=== PATIENT | male | born 1970 | race Caucasian/White ===

== ENCOUNTER 2016-12-01 16:56 | Emergency (ER) | payer BC ==
[2016-12-01] MEDS ORDERED: 0.9 % SODIUM CHLORIDE 1,000 ML IV ONE (17:06)
[2016-12-01] MEDS ORDERED: ONDANSETRON HCL/PF 4 MG/ 2ML VIAL ONE (17:26)
[2016-12-01] MEDS: 0.9 % SODIUM CHLORIDE 1,000 ML IV SCH (17:29)
[2016-12-01 17:35] LABS: MEAN CORPUSCULAR HEMOGLOBIN 28.6 pg (28.0-34.0); MEAN CORPUSCULAR VOLUME 86.1 fl (80.0-100.0)
[2016-12-01 17:42] LABS: eGFR (African) > 60; eGFR (Non-African) > 60
--- NOTE | 2016-12-01 17:53 | ED Physician Documentation ---
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 Has not been urinating much today. Patient became naseated and started having some abd cramping. Patient states that he passed out and fell out of his tractor. Tractor has a cab so he beleives he was in the process of getting out of the cab when he blacked out. He awoke on the ground and complains of some pain in the lower back and knees that he did not have previously. No history of syncope. No seizures. No cardiac problems) - ROS CONST: no problems. denies: fever, chills EYES/ENT: none CVS/RESP: none GI/: abdominal pain, problems urinating (some stinging and burning.), nausea. denies: diarrhea, black stools MS/SKIN/LYMPH: joint pain (knees bilat), back pain (lower lumbar). denies: neck pain NEURO/PSYCH: difficulty walking (due to pain). denies: headache, fainting, numbness - PAST HX Past History: other (allergic rhinnitis) Other History: none Surgeries/Procedures: other (sinus surgery) Allergies/Adverse Reactions: Allergies Allergy/AdvReac Type Severity Reaction Status Date / Time No Known Allergies Allergy Verified 12/01/16 17:33 - SOCIAL HX Smoking History: non-smoker Alcohol Use: none Drug Use: none - FAMILY HX Family History: No - VITAL SIGNS Vital Signs: Vital Signs Temp Pulse Resp BP Pulse Ox 117/67 12/22/13 23:35 - REVIEWED ASSESSMENTS Nursing Assessment Reviewed: Yes Vitals Reviewed: Yes ED Results Lab/Radiology - Lab Results Lab Results: Lab Results 12/01/16 12/01/16 17:20 17:20 WBC 18.60 K/ul H K/ul (4.00-12.00) RBC 5.20 M/ul M/ul (3.90-5.20) Hgb 14.8 g/dL g/dL (12.0-18.0) Hct 44.8 % % (37.0-53.0) MCV 86.1 fl fl (80.0-100.0) MCH 28.6 pg pg (28.0-34.0) MCHC 33.2 g/dL g/dL (30.0-36.0) RDW 13.7 % % (11.3-14.3) Plt Count 217 K/mm3 K/mm3 (130-400) Sodium 141 mmol/L mmol/L (136-145) Potassium 3.8 mmol/L mmol/L (3.5-5.0) Chloride 106 mmol/L mmol/L (98-110) Carbon Dioxide 26 mmol/L mmol/L (20-32) BUN 14 mg/dL mg/dL (10-26) Creatinine 1.0 mg/dL mg/dL (0.4-1.5) Estimated Creat Clear 115 Est GFR ( Amer) > 60 (60 - ) Est GFR (Non-Af Amer) > 60 (60 - ) Glucose 85 mg/dL mg/dL (70-99) Calcium 9.7 mg/dL mg/dL (8.5-10.5) Total Bilirubin 1.4 mg/dL H mg/dL (0.2-1.2) AST 26 U/L U/L (0-41) ALT 38 U/L U/L (0-45) Alkaline Phosphatase 84 U/L U/L (46-116) Total Protein 7.4 g/dL g/dL (6.0-8.5) Albumin 4.8 g/dL g/dL (3.0-5.5) - Radiology Radiology Impressions: Report Submission Date: Dec 01, 2016 7:03:37 PM CDT Patient Study Name: ORTIZ CORTEZ+ Date: Dec 01, 2016 6:15:45 PM CDT Modality Type: CR Gender: M Description: LOWER EXTREMITY : 68 Institution: [facility] Physician: ISIDORO LEAHY Bilateral knees, AP, lateral and sunrise views History: Knee pain, fall Findings: The osseous, joints and soft tissue structures are normal. Impression: Normal. Lumbar spine, AP and lateral, 3 images History: Low back pain, fall Findings: No fracture, subluxation or abnormal bone production or destruction is identified. The vertebral bodies and intervertebral disc spaces are of normal height. Impression: Normal. Electronically signed on Dec 01, 2016 7:02:30 PM CDT by: Zak Tobin - Orders Orders: ED Orders Category Date Time Status Place IV Lock 1T Care 12/01/16 17:08 Active CBC/PLATELET/DIFF Routine Lab 12/01/16 17:20 Completed CMP Routine Lab 12/01/16 17:20 Completed URINALYSIS Routine Lab 12/01/16 Uncollected 0.9 % Sodium Chloride [Normal Saline] 1,000 ml Med 12/01/16 17:30 Ordered IV .Q1H 0.9 % Sodium Chloride [Normal Saline] 1,000 ml Med 12/01/16 17:06 Discontinued IV .STK-MED Ondansetron HCl/Pf [Zofran 4 mg/2 ml] Med 12/01/16 17:26 Discontinued 4 mg .ROUTE .STK-MED ONE General Adult Physical Exam - PHYSICAL EXAM GENERAL APPEARANCE: mild distress EENT: eye inspection normal, dry mucous membranes NECK: normal inspection, supple. No: lymphadenopathy, stiff neck RESPIRATORY: no resp distress, chest non-tender, breath sounds normal. No: wheezes, rales, rhonchi CVS: reg rate & rhythm (NSR on monitor), heart sounds normal, equal pulses, no gallop ABDOMEN: soft, normal bowel sounds, no distension, tenderness (mild diffuse). No: no organomegaly, no abdominal bruit, rigid, rebound, guarding BACK: no CVA tenderness, other (tenderness over the lower lumar sacral area. No ecchymosis noted, no swelling or abrasions) SKIN: warm/dry EXTREMITIES: other (tenderness ot palpation over both knees, seemed to be all over, no focal tenderness noted. Nl passive ROM, no crepitus, ligaments stable. ) NEURO: oriented X3, CN's nml as tested, motor nml, sensation nml, mood/affect nml, cognition normal Discharge Clincal Impression: Heat exhaustion, Contusion of knee Referrals: Isidoro Leahy MD [Emergency Provider] - 2 Days Additional Instructions: Drink a lot of fluids. You want to drink enough that when you urinate your urine is just a slight yellow color. Take Ibuprofen 200mg tablets, 3-4 every 8 hours with food to help with pain. Rest tonight. If you start to have more problems with severe muscle cramps, confusion, not urinating for 12 hours to see your primary care provider or return to the ED. Condition: Stable Disposition: 01 HOME, SELF-CARE Decision to Admit: NO Date of Decison to Admit: 12/01/16 Decision Time: 19:24
[2016-12-01 17:57] LABS: BASOPHILS % 1 % (0-2); EOSINOPHILS % 2 % (0-7); MONOCYTES % 6 % (0-11); SEGMENTED NEUTROPHILS % 75 % (39-79)
--- NOTE | 2016-12-01 19:09 | Diagnostic Imaging Report ---
JANNET GONZALEZ [id number] [facility] [address] [address] Report Submission Date: Dec 01, 2016 7:02:30 PM CDT Patient Study Name: ORTIZ CORTEZ Date: Dec 01, 2016 6:14:19 PM CDT Modality Type: CR Gender: M Description: SPINE : 68 Institution: Physician: JANNET GONZALEZ Lumbar spine, AP and lateral, 3 images History: Low back pain, fall Findings: No fracture, subluxation or abnormal bone production or destruction is identified. The vertebral bodies and intervertebral disc spaces are of normal height. Impression: Normal. Electronically signed on Dec 01, 2016 7:02:30 PM CDT by: Zak RILEY
--- NOTE | 2016-12-01 19:09 | Diagnostic Imaging Report ---
JANNET GONZALEZ [facility] [id number] [facility] [address] [address] Report Submission Date: Dec 01, 2016 7:03:37 PM CDT Patient Study Name: ORTIZ CORTEZ Date: Dec 01, 2016 6:15:45 PM CDT Modality Type: CR Gender: M Description: LOWER EXTREMITY : 68 Institution: [facility] Physician: JANNET GONZALEZ Bilateral knees, AP, lateral and sunrise views History: Knee pain, fall Findings: The osseous, joints and soft tissue structures are normal. Impression: Normal. Electronically signed on Dec 01, 2016 7:03:37 PM CDT by: Zak RILEY
[2016-12-01] MEDS: KETOROLAC TROMETHAMINE 30 MG/1ML VIAL IVP ONE (19:10)
[2016-12-01] MEDS: ONDANSETRON HCL/PF 4 MG/ 2ML VIAL IVP ONE (19:35)
[2016-12-01 22:00] VITALS: BP 106/59
[2016-12-02] MEDS: KETOROLAC TROMETHAMINE 60 MG/2 ML VIAL IM ONE (07:47)
== END 2016-12-01 19:40 | disposition home or self-care (01) ==
LOC: ED 16:56
DX: T67.5XXA Heat exhaustion, unspecified, initial encounter (principal); S80.02XA Contusion of left knee, initial encounter; S80.01XA Contusion of right knee, initial encounter; X58.XXXA Exposure to other specified factors, initial encounter; Y93.9 Activity, unspecified; Y99.9 Unspecified external cause status
CPT/HCPCS: 72100; 73562; 80053; 85025; J1885; J2405; J7030; 96361; 96374; 96375; 99283; S1016